=== PATIENT | male | born 2000 | race Caucasian/White ===

== ENCOUNTER 2022-06-04 12:57 | Inpatient (IN) ==
[2022-06-04 13:42] LABS: Basophils # (auto) 0.04 K/uL (0-0.2); Basophils % (auto) 0.6 %; Eosinophils % (auto) 1.5 %; Hematocrit (blood only) 45.1 % (42.0-52.0); Hemoglobin 15.9 g/dl (14.0-18.0); Immature Granulocytes # (auto) 0.02 K/uL (0.01-0.20); Immature Granulocytes % (auto) 0.3 %; Lymphocytes # (auto) 1.48 K/uL (1.2-3.4); Lymphocytes % (auto) 22.2 %; Mean Corpuscular Hemoglobin 30.9 pg (25.0-34.0); Mean Corpuscular Hgb Conc 35.3 g/dL (32.0-36.0); Mean Corpuscular Volume 87.7 fL (80.0-100.0); Mean Platelet Volume 10.3 fL (9.4-12.4); Monocytes # (auto) 0.48 K/uL (0.11-0.59); Monocytes % (auto) 7.2 %; Neutrophils # (auto) 4.55 K/uL (1.40-6.50); Neutrophils % (auto) 68.2 %; Platelet Count 270 K/uL (130-400); RDW Coefficient of Variation 11.8 % (11.5-14.5); RDW Standard Deviation 37.7 fL (36.4-46.3); Red Blood Count 5.14 M/uL (4.70-6.10); White Blood Count 6.67 K/ul (4.8-10.8)
[2022-06-04 13:55] LABS: Alanine Aminotransferase 11 U/L (7-52); Albumin Globulin Ratio 1.9 (0.9-2); Alkaline Phosphatase 56 U/L (34-104); Anion Gap 7 (3-11); Aspartate Aminotransferase 17 U/L (13-39); BUN Creatinine Ratio 15.3 (10-20); Bilirubin,Total 0.8 mg/dl (0.2-1.0); Blood Urea Nitrogen 15 mg/dl (6-23); Calcium 9.7 mg/dl (8.6-10.3); Carbon Dioxide 25 mmol/L (21-32); Chloride 107 mmol/L (98-107); Est GFR (African American) 125.4 ml/min; Est GFR (Non-African American) 108.2 ml/min; Globulin 2.7 gm/dl (2.5-4.0); Glucose 97 mg/dl (70-99(Fasting)); Potassium 4.1 mmol/L (3.5-5.1); Sodium 139 mmol/L (136-145); Total Protein 7.7 gm/dl (6.0-8.3)
[2022-06-04 14:00] LABS: Appearance Urine Clear (Clear); Bacteria Urine Automated Negative (Negative); Bilirubin Urine Negative (Negative); Blood Urine Trace (Negative); Color Urine Yellow; Glucose Urine UA Negative (Negative); Ketones Urine Negative (Negative); Leukocyte Esterase Urine Negative (Negative); Nitrite Urine Negative (Negative); Protein Urine Negative (Negative); Specific Gravity Urine 1.011 (1.000-1.030); Urobilinogen Urine Negative (Negative); pH Urine 7.5 (4.5-7.5)
[2022-06-04 14:06] LABS: Acetaminophen < 3 ug/ml (10-30); Salicylate < 3.0 mg/dl (3.0-30)
[2022-06-04 14:15] LABS: Amphetamines+Metham, Urine Neg (Neg); Barbiturates, Urine Neg (Neg); Benzodiazepine, Urine Neg (Neg); Cocaine, Urine Neg (Neg); MDMA (Ecstacy), Urine Neg (Neg); Methadone, Urine Neg (Neg); Opiate, Urine Neg (Neg); Phencyclidine, Urine Neg (Neg)
--- NOTE | 2022-06-04 14:15 | Emergency Department Note ---
Impression & Plan Depression, Intentional self-harm ED Provider Note Provider: Dameon Willard MD DATE OF SERVICE: 06/04/2022 CHIEF COMPLAINT: Mental health evaluation HISTORY OF PRESENT ILLNESS: Patient is a 21-year-old gentleman without known psychiatric history presenting here by the [place] police. Patient evidently slipped and got into an argument with his girlfriend returned home. Verbal argument. She is evidently angry for him to sleep again. He reports that she has recently had some medication changes and things have been a little during the argument he states he did not want to be here and took a knife and put some thin mcgarry on his neck. He tells me that he did this not an attempt to kill himself. Some small scrapes elsewise on his knuckles. Denies other injury or significant pain. States he is unsure when his last tetanus was but does not want an update. Patient states he has met with some point outpatient for intake session but is not sure when his upcoming therapy sessions are. Has a history of 2 prior inpatient stays previously. Denies wanting to harm anybody else cu rrently. No hallucinations reported. Denies taking any medications PAST MEDICAL HISTORY: As noted above MEDICATIONS: None reported SOCIAL HISTORY: Smoker PHYSICAL EXAM: GENERAL: alert and oriented in no acute distress on stretcher Head: normocephalic and atraumatic EYES: No injection, discharge or icterus. PERRL, EOMI. NECK: Trachea midline. There are approximately three 3 cm very superficial linear lacerations to the right lateral neck just above the collarbone. No active bleeding or significant depth. No foreign body. ENT: Mucous membranes pink and moist. LUNGS: Airway patent. No retractions or tachypnea HEART: Regular rate and rhythm. SKIN: Acyanotic, warm, dry EXTREMITIES: Without swelling, tenderness or deformity with some scattered abrasions on the knuckles bilaterally. NEUROLOGICAL: No focal deficits. No aphasia. No facial droop or slurred speech. Ambulatory. Psych: Flattened affect. Poor eye contact. Denies SI but states he wants to start a new life again on "another planet or in another country". Seems quite hopeless. No HI reported. Patient's laboratory studies reviewed. Differential includes Mood disorder, infection, hypoglycemia, electrolyte abno rmalities, cardiac sources, intracerebral event, toxicologic, trauma, neurologic, as well as other pathologies. IMPRESSION/MEDICAL DECISION MAKING: Seen with cyanide case hardener for mental health assessment. Patient with some very superficial cuts to the right lateral neck. Not near any major structures. No significant depth. Not require closure. Offered tetanus shot with the patient declines on discussion. He has some outpatient counseling but no current medications. No true HI noted. Denies wanting to kill himself but states he was been out of the planet or another country and seems to indicate significant hopelessness. Prior history of 2 mental health hospitalizations previously. [facility] blood work sent. No severe abnormalities noted. Excepted by 3 S. for further inpatient treatment on a voluntary status but strongly recommended given the severity of the actions today. DIAGNOSIS: Depression, self-harm DISPOSITION: 3 S. for further inpatient psychiatric care Past Med/Surg History Medical History No pertinent past medical history Surgical History No pertinent past surgical history Social History Smoking Status: Current every day smoker Preferred Language: Moldovan Communication Ability: Effective Energy Director Required: No Beliefs That Will Affect Care: None Feels Safe at Home: Yes Gender Identity: Male Assistive Devices: None Allergies Allergies Allergy/AdvReac Type Severity Reaction Status Date / Time azithromycin [From Zithromax] Allergy Verified 02/08/22 15:16 Home Meds Home Medications Medication Instructions Recorded Confirmed No Known Home Medications 06/04/22 06/04/22 Results & Data (ED) Vital Signs Vital Signs - 24 hr 06/04/22 13:27 06/04/22 13:31 06/04/22 16:00 Temperature 37.1 C Temperature Source Oral Oral Pulse Rate 91 H Pulse Rate [Radial] 70 Pulse Rhythm [Radial] Regular Respiratory Rate 16 18 Respiratory Effort / Characteristics Non-Labored Non-Labored Respiratory Depth Normal Normal Respiratory Pattern Regular Blood Pressure 127/101 H Blood Pressure [Right Arm] 138/79 Blood Pressure Mean 109 Blood Pressure Mean [Right Arm] 98 Blood Pressure Position Sitting Pulse Oximetry 100 97 Oxygen Delivery Method Room Air Room Air Sepsis Recent Fever Within 48 Hours No Sepsis New/Unexplained Change in Mental Status No Sepsis Action Taken by Nursing No Action Required Laboratory Data 06/04/22 13:15 06/04/22 13:15 Lab Results 06/04/22 06/04/22 06/04/22 Range/Units 13:10 13:10 13:15 WBC 6.67 (4.8-10.8) K/ul RBC 5.14 (4.70-6.10) M/uL Hgb 15.9 (14.0-18.0) g/dl Hct 45.1 (42.0-52.0) % MCV 87.7 (80.0-100.0) fL MCH 30.9 (25.0-34.0) pg MCHC 35.3 (32.0-36.0) g/dL RDW Std Deviation 37.7 (36.4-46.3) fL RDW Coeff of Monica 11.8 (11.5-14.5) % Plt Count 270 (130-400) K/uL MPV 10.3 (9.4-12.4) fL Immature Gran % (Auto) 0.3 % Neut % (Auto) 68.2 % Lymph % (Auto) 22.2 % Mills % (Auto) 7.2 % Eos % (Auto) 1.5 % Baso % (Auto) 0.6 % Neut # (Auto) 4.55 (1.40-6.50) K/uL Lymph # (Auto) 1.48 (1.2-3.4) K/uL Mills # (Auto) 0.48 (0.11-0.59) K/uL Eos # (Auto) 0.10 (0-0.50) K/uL Baso # (Auto) 0.04 (0-0.2) K/uL Immature Gran # (Auto) 0.02 (0.01-0.20) K/uL Sodium (136-145) mmol/L Potassium (3.5-5.1) mmol/L Chloride (98-107) mmol/L Carbon Dioxide (21-32) mmol/L Anion Gap (3-11) BUN (6-23) mg/dl Creatinine (0.6-1.4) mg/dl Est Cr Clr Drug Dosing Est GFR ( Amer) ml/min Est GFR (Non-Af Amer) ml/min BUN/Creatinine Ratio (10-20) Glucose (70-99(Fasting)) mg/dl Calcium (8.6-10.3) mg/dl Total Bilirubin (0.2-1.0) mg/dl AST (13-39) U/L ALT (7-52) U/L Alkaline Phosphatase (34-104) U/L Total Protein (6.0-8.3) gm/dl Albumin (3.4-5.0) gm/dl Globulin (2.5-4.0) gm/dl Albumin/Globulin Ratio (0.9-2) TSH (0.300-4.500) uIu/ml Urine Color Yellow Urine Appearance Clear (Clear) Urine pH 7.5 (4.5-7.5) Ur Specific [place] 1.011 (1.000-1.030) Urine Protein Negative (Negative) Urine Glucose (UA) Negative (Negative) Urine Ketones Negative (Negative) Urine Blood Trace H (Negative) Urine Nitrite Negative (Negative) Urine Bilirubin Negative (Negative) Urine Urobilinogen Negative (Negative) Ur Leukocyte Esterase Negative (Negative) Urine WBC (Auto) 1-5 (0-5) /hpf Urine RBC (Auto) 5-10 H (0-4) /hpf U Hyaline Cast (Auto) 5-10 H (0-5) /lpf U Epithel Cells (Auto) 5-10 H (0-5) /lpf Urine Bacteria (Auto) Negative (Negative) Salicylates (3.0-30) mg/dl Urine Opiates Screen Neg (Neg) Ur Methadone, Qual Neg (Neg) Acetaminophen (10-30) ug/ml Urine Barbiturates Neg (Neg) Ur Phencyclidine (PCP) Neg (Neg) U Amphetamin/Meth Scrn Neg (Neg) MDMA (Ecstasy) Screen Neg (Neg) U Benzodiazepines Scrn Neg (Neg) Ur Cocaine Metabolite Neg (Neg) U Marijuana (THC) Screen Pos H (Neg) Ethyl Alcohol mg/dL (<10.0) mg/dl SARS-CoV-2, RNA, NAAT (NEGATIVE) 06/04/22 06/04/22 06/04/22 Range/Units 13:15 13:15 13:15 WBC (4.8-10.8) K/ul RBC (4.70-6.10) M/uL Hgb (14.0-18.0) g/dl Hct (42.0-52.0) % MCV (80.0-100.0) fL MCH (25.0-34.0) pg MCHC (32.0-36.0) g/dL RDW Std Deviation (36.4-46.3) fL RDW Coeff of Monica (11.5-14.5) % Plt Count (130-400) K/uL MPV (9.4-12.4) fL Immature Gran % (Auto) % Neut % (Auto) % Lymph % (Auto) % Mills % (Auto) % Eos % (Auto) % Baso % (Auto) % Neut # (Auto) (1.40-6.50) K/uL Lymph # (Auto) (1.2-3.4) K/uL Mills # (Auto) (0.11-0.59) K/uL Eos # (Auto) (0-0.50) K/uL Baso # (Auto) (0-0.2) K/uL Immature Gran # (Auto) (0.01-0.20) K/uL Sodium 139 (136-145) mmol/L Potassium 4.1 (3.5-5.1) mmol/L Chloride 107 (98-107) mmol/L Carbon Dioxide 25 (21-32) mmol/L Anion Gap 7 (3-11) BUN 15 (6-23) mg/dl Creatinine 0.98 (0.6-1.4) mg/dl Est Cr Clr Drug Dosing Not Reportable Est GFR ( Amer) 125.4 ml/min Est GFR (Non-Af Amer) 108.2 ml/min BUN/Creatinine Ratio 15.3 (10-20) Glucose 97 (70-99(Fasting)) mg/dl Calcium 9.7 (8.6-10.3) mg/dl Total Bilirubin 0.8 (0.2-1.0) mg/dl AST 17 (13-39) U/L ALT 11 (7-52) U/L Alkaline Phosphatase 56 (34-104) U/L Total Protein 7.7 (6.0-8.3) gm/dl Albumin 5.0 (3.4-5.0) gm/dl Globulin 2.7 (2.5-4.0) gm/dl Albumin/Globulin Ratio 1.9 (0.9-2) TSH 2.853 (0.300-4.500) uIu/ml Urine Color Urine Appearance (Clear) Urine pH (4.5-7.5) Ur Specific [place] (1.000-1.030) Urine Protein (Negative) Urine Glucose (UA) (Negative) Urine Ketones (Negative) Urine Blood (Negative) Urine Nitrite (Negative) Urine Bilirubin (Negative) Urine Urobilinogen (Negative) Ur Leukocyte Esterase (Negative) Urine WBC (Auto) (0-5) /hpf Urine RBC (Auto) (0-4) /hpf U Hyaline Cast (Auto) (0-5) /lpf U Epithel Cells (Auto) (0-5) /lpf Urine Bacteria (Auto) (Negative) Salicylates < 3.0 L (3.0-30) mg/dl Urine Opiates Screen (Neg) Ur Methadone, Qual (Neg) Acetaminophen < 3 L (10-30) ug/ml Urine Barbiturates (Neg) Ur Phencyclidine (PCP) (Neg) U Amphetamin/Meth Scrn (Neg) MDMA (Ecstasy) Screen (Neg) U Benzodiazepines Scrn (Neg) Ur Cocaine Metabolite (Neg) U Marijuana (THC) Screen (Neg) Ethyl Alcohol mg/dL (<10.0) mg/dl SARS-CoV-2, RNA, NAAT (NEGATIVE) 06/04/22 06/04/22 Range/Units 13:15 13:20 WBC (4.8-10.8) K/ul RBC (4.70-6.10) M/uL Hgb (14.0-18.0) g/dl Hct (42.0-52.0) % MCV (80.0-100.0) fL MCH (25.0-34.0) pg MCHC (32.0-36.0) g/dL RDW Std Deviation (36.4-46.3) fL RDW Coeff of Monica (11.5-14.5) % Plt Count (130-400) K/uL MPV (9.4-12.4) fL Immature Gran % (Auto) % Neut % (Auto) % Lymph % (Auto) % Mills % (Auto) % Eos % (Auto) % Baso % (Auto) % Neut # (Auto) (1.40-6.50) K/uL Lymph # (Auto) (1.2-3.4) K/uL Mills # (Auto) (0.11-0.59) K/uL Eos # (Auto) (0-0.50) K/uL Baso # (Auto) (0-0.2) K/uL Immature Gran # (Auto) (0.01-0.20) K/uL Sodium (136-145) mmol/L Potassium (3.5-5.1) mmol/L Chloride (98-107) mmol/L Carbon Dioxide (21-32) mmol/L Anion Gap (3-11) BUN (6-23) mg/dl Creatinine (0.6-1.4) mg/dl Est Cr Clr Drug Dosing Est GFR ( Amer) ml/min Est GFR (Non-Af Amer) ml/min BUN/Creatinine Ratio (10-20) Glucose (70-99(Fasting)) mg/dl Calcium (8.6-10.3) mg/dl Total Bilirubin (0.2-1.0) mg/dl AST (13-39) U/L ALT (7-52) U/L Alkaline Phosphatase (34-104) U/L Total Protein (6.0-8.3) gm/dl Albumin (3.4-5.0) gm/dl Globulin (2.5-4.0) gm/dl Albumin/Globulin Ratio (0.9-2) TSH (0.300-4.500) uIu/ml Urine Color Urine Appearance (Clear) Urine pH (4.5-7.5) Ur Specific [place] (1.000-1.030) Urine Protein (Negative) Urine Glucose (UA) (Negative) Urine Ketones (Negative) Urine Blood (Negative) Urine Nitrite (Negative) Urine Bilirubin (Negative) Urine Urobilinogen (Negative) Ur Leukocyte Esterase (Negative) Urine WBC (Auto) (0-5) /hpf Urine RBC (Auto) (0-4) /hpf U Hyaline Cast (Auto) (0-5) /lpf U Epithel Cells (Auto) (0-5) /lpf Urine Bacteria (Auto) (Negative) Salicylates (3.0-30) mg/dl Urine Opiates Screen (Neg) Ur Methadone, Qual (Neg) Acetaminophen (10-30) ug/ml Urine Barbiturates (Neg) Ur Phencyclidine (PCP) (Neg) U Amphetamin/Meth Scrn (Neg) MDMA (Ecstasy) Screen (Neg) U Benzodiazepines Scrn (Neg) Ur Cocaine Metabolite (Neg) U Marijuana (THC) Screen (Neg) Ethyl Alcohol mg/dL < 10.0 (<10.0) mg/dl SARS-CoV-2, RNA, NAAT NEGATIVE (NEGATIVE) Administered Medications Discontinued Medications Nicotine Polacrilex (Nicotine Polacrilex 2 Mg Gum) 1 piece MT PRN PRN PRN Reason: smoking Stop: 07/04/22 14:12 Last Admin: 06/04/22 16:15 Dose: 1 piece Documented By: Admin: 06/04/22 14:23 Dose: 1 piece Documented By: KACIE Discharge Plan Visit Data Chief Complaint: Mental Health Evaluation Stated Complaint: [facility] ED Provider: Dameon Willard Discharge Problem: Depression, Intentional self-harm Patient Disposition: Admitted As Inpatient Discharge Instructions Interventions: ED Discharge Assessment Last Done: 06/04/22 17:03
[2022-06-04] MEDS: NICOTINE POLACRILEX 2 MG GUM MT PRN ×4 (14:23→19:54)
[2022-06-04] MEDS ORDERED: NICOTINE POLACRILEX 2 MG GUM MT PRN (14:25)
[2022-06-04] MEDS ORDERED: hydrOXYzine HCl 25 MG TAB PO PRN ×2 (17:26)
[2022-06-04] MEDS ORDERED: ALUMINUM/MAGNESIUM SUSP 30 ML UDC PO PRN (17:26)
[2022-06-04] MEDS ORDERED: ACETAMINOPHEN 325 MG TAB PO PRN (17:26)
[2022-06-04] MEDS ORDERED: MAGNESIUM HYDROXIDE SUSP 30 ML UDC PO PRN (17:26)
[2022-06-04] MEDS ORDERED: BISMUTH SUBSALICYLATE LIQD 236 ML PO PRN (17:26)
[2022-06-04] MEDS ORDERED: SODIUM CHLORIDE 0.65% NA SOLN 45 ML (OCEAN) PRN (17:26)
[2022-06-05] MEDS: NICOTINE POLACRILEX 2 MG GUM MT PRN ×5 (06:59→20:22)
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
[2022-06-05] MEDS: NICOTINE 14 MG/24 HR PATCH TD SCH (11:35)
[2022-06-05] MEDS: FLUoxetine HCL 20 MG CAP PO SCH (12:24)
[2022-06-06] MEDS: NICOTINE POLACRILEX 2 MG GUM MT PRN ×4 (07:29→21:03)
[2022-06-06] MEDS: FLUoxetine HCL 20 MG CAP PO SCH (08:17)
[2022-06-06] MEDS: NICOTINE 14 MG/24 HR PATCH TD SCH (08:18)
--- NOTE | 2022-06-06 14:28 | Psychiatric Progress Note ---
Date of Service June 06, 2022 Impression / Recommendations Mike Augustin is a 21 year old man with a history of depression, anxiety, PTSD, ADHD and self-harm who was admitted for suicide rehearsal behavior/interrupted attempt of cutting his neck with a knife. Diagnostically consistent with Major Depressive Disorder with anxious distress versus PTSD, also with SABRINA and ADHD per history (sounds like combined type given periods of prominent hyperactivity). The patient is deemed unstable and requires psychiatric hospitalization for diagnostic clarification, safety and stabilization, medication management and development of further coping skills. 06/06/2022: Ongoing depression but tolerating initiation of fluoxetine. Will monitor vision change to ensure this doesn't worsen, discussed option to move fluoxetine to HS if he feels it is causing fatigue but for now he prefers to ta ke this in the morning. (1) Recurrent severe major depressive disorder with anxiety: (2) SABRINA (generalized anxiety disorder): (3) Post traumatic stress disorder (PTSD): (4) ADHD (attention deficit hyperactivity disorder): Plan 06/06/2022: Continue current medications and tx plan. 06/05/2022: The patient was admitted to the [facility] ([facility] mental health unit) on q15 min checks (behavioral with suicide precautions) for safety. The patient will participate in group, recreational, and milieu therapies and will be offered additional individual and family sessions as clinically appropriate. -start fluoxetine 20mg qd Inventory Assets Strengths: supportive relationships, willing to get treatment Needs: safety and stabilization, medication adjustment, additional coping skills, increased outpatient services Suicide Risk Level Suicide Risk Level: High-Moderate (q15 min suicide checks) (depression with suicide rehearsal behavior prior to admission but now feels safe in the hospital, able to safety contract and agrees to let nursing/staff know should they develop plan, intent or feel unable to remain safe. ) Risk Factors Assessment Male: Yes : Yes Do You Have Access To A Gun?: No (no guns at his apartment but has friends with guns that he will aaron with) Health Problems: No Mental Health Diagnoses: Yes Previous Attempt: No Family History of Suicide: Yes Previous Psychiatric Hospitalization: Yes Protective Factors Assessment [employer] Beliefs: Yes Employed: Yes Stable Relationships: Yes Supportive Family: Yes Interval History Identifying Information DION ROGERS is a 21-year-old M who currently lives in [place] with his girlfriend, has a history of depression, anxiety, PTSD and ADHD and was admitted on 06/04/22 16:41 on a 201 voluntary commitment for suicide rehearsal behavior of cutting his neck with a knife. Chief Complaint "I had a really conversation with the counselor, I'm proud of myself for working on things this time and not just trying to get out here". Review of Systems Sleep Information Total Hours of Sleep: 5 Meal Information Percent Meal Consumed - Breakfast: 90 Percent Meal Consumed - Lunch: 100 Percent Meal Consumed - Dinner: 80 Subjective Subjective Patient was seen & assessed and interval progress reviewed with treatment team nursing and social work. Attending groups. Finding inpatient environment very therapeutic. Feels he's reflecting on his anger and negative reactions that occur when he feels "not in control". No side effects from the fluoxetine so far except brief sense of vision change for a second before he fully wakes up but no vision changes during the day while awake. Physical Exam Psychiatric Orientation: alert and oriented x 3 Apperance: appropriately dressed and appropriately groomed Eye Contact: good eye contact Motor Behavior: no abnormal motor movements Speech: normal rate/rhythm/volume of speech Affect: + depressed affect and + anxious affect Mood: + depressed mood and + anxious mood Thought Process: goal directed thought process Thought Content: reality based without delusions, + guilt and + self deprecation Suicidal Thoughts: denies suicidal thoughts (intermittent), denies suicidal plan and denies suicidal intent Homicidal Thoughts: denies homicidal thoughts Hallucinations: no auditory hallucinations and no visual hallucinations Cognition: recent memory grossly intact, remote memory grossly intact, attention grossly intact and language grossly intact Estimated Intelligence: consistent with education level Insight: + fair insight Judgment: + fair judgement Vital Signs (Past 24 Hours) Last Vital Signs Temp 36.6 C 06/06/22 06:28 Pulse 81 06/06/22 06:28 Resp 16 06/06/22 06:28 BP 128/87 06/06/22 06:28 Pulse Ox 97 06/05/22 06:00 O2 Del Method Room Air 06/05/22 06:00 Results & Data ([facility] [place]) Current Inpatient Medications Current Inpatient Medications: Current Inpatient Medications Acetaminophen (Acetaminophen 325 Mg Tab) 650 mg PO Q4H PRN PRN Reason: Headache or Minor Fever Stop: 07/04/22 17:25 Al Hydrox/Mg Hydrox/Simethicone (Aluminum/Magnesium Susp 30 Ml Udc) 30 ml PO Q4H PRN PRN Reason: GI Upset Stop: 07/04/22 17:25 Bismuth Subsalicylate (Bismuth Subsalicylate Liqd 236 Ml) 15 ml PO PRN PRN PRN Reason: Loose Stool Stop: 07/04/22 17:25 Fluoxetine HCl (Fluoxetine Hcl 20 Mg Cap) 20 mg PO QAM [facility] Stop: 07/05/22 11:29 Last Admin: 06/06/22 08:17 Dose: 20 mg Hydroxyzine HCl (Hydroxyzine Hcl 25 Mg Tab) 50 mg PO HSZ PRN PRN Reason: Insomnia Stop: 07/04/22 17:25 Hydroxyzine HCl (Hydroxyzine Hcl 25 Mg Tab) 25 mg PO Q4H PRN PRN Reason: Anxiety Stop: 07/04/22 17:25 Last Admin: 06/04/22 19:54 Dose: 25 mg Magnesium Hydroxide (Magnesium Hydroxide Susp 30 Ml Udc) 30 ml PO DAILY PRN PRN Reason: Constipation Stop: 07/04/22 17:25 Miscellaneous (Remove Nicoderm Patch) 1 each N/A DAILY@[id number] [facility] Stop: 07/06/22 08:58 Last Admin: 06/06/22 08:18 Dose: Not Given Nicotine (Nicotine 14 Mg/24 Hr Patch) 14 mg TD QAM [facility] Stop: 07/05/22 10:14 Last Admin: 06/06/22 08:18 Dose: 14 mg Nicotine Polacrilex (Nicotine Polacrilex 2 Mg Gum) 1 piece MT PRN PRN PRN Reason: smoking cessation Stop: 07/04/22 17:26 Last Admin: 06/06/22 12:07 Dose: 1 piece Sodium Chloride (Sodium Chloride 0.65% Na Soln 45 Ml ([place])) 1 - 2 sprays NA PRN PRN PRN Reason: Nasal Dryness/Congestion Stop: 07/04/22 17:25 Mental Health & Subst Abuse Tx Psychiatrist Name of Psychiatrist: Charu Streeter Psychiatrist's Date Of Appointment With Psychiatric Provider: 06/24/2022 Time of Appointment with Psychiatrist: 10am Psychiatric Appointment Comment: [address] [place], [place] Therapist Name of Therapist: [facility] Date of Therapist Appointment: 06/20/2022 Time of Therapist Appointment: 4PM Therapy Appointment Comment: continue zoom protocol Post Discharge Appointments Primary Care Physician Name Of Family Doctor/PCP: [facility] Time of Appointment with PCP: follow up as needed Provider Appointment Comment: [address] [place] [id number]
[2022-06-07] MEDS: NICOTINE POLACRILEX 2 MG GUM MT PRN ×5 (08:11→20:05)
[2022-06-07] MEDS: FLUoxetine HCL 20 MG CAP PO SCH (08:25)
[2022-06-07] MEDS: NICOTINE 14 MG/24 HR PATCH TD SCH (08:30)
--- NOTE | 2022-06-07 16:37 | Psychiatric Progress Note ---
Date of Service June 07, 2022 Impression / Recommendations Mkie Augustin is a 21 year old man with a history of depression, anxiety, PTSD, ADHD and self-harm who was admitted for suicide rehearsal behavior/interrupted attempt of cutting his neck with a knife. Diagnostically consistent with Major Depressive Disorder with anxious distress versus PTSD, also with SABRINA and ADHD per history (sounds like combined type given periods of prominent hyperactivity). The patient is deemed unstable and requires psychiatric hospitalization for diagnostic clarification, safety and stabilization, medication management and development of further coping skills. 06/07/2022: Ongoing depression but increasing insight and working on processing how past trauma and anger has impacted how he processes and reacts to emotions. Seems vision changes may be due to nicotine patch, will continue to monitor. Otherwise tolerating fluoxetine well. (1) Recurrent severe major depressive disorder with anxiety: (2) SABRINA (generalized anxiety disorder): (3) Post traumatic stress disorder (PTSD): (4) ADHD (attention deficit hyperactivity disorder): Plan 06/07/2022: Continue current medications and tx plan. 06/06/2022: Continue current medications and tx plan. 06/05/2022: The patient was admitted to the [facility] ([facility] mental health unit) on q15 min checks (behavioral with suicide precautions) for safety. The patient will participate in group, recreational, and milieu therapies and will be offered additional individual and family sessions as clinically appropriate. -start fluoxetine 20mg qd Inventory Assets Strengths: supportive relationships, willing to get treatment Needs: safety and stabilization, medication adjustment, additional coping skills, increased outpatient services Suicide Risk Level Suicide Risk Level: High-Moderate (q15 min suicide checks) (depression with suicide rehearsal behavior prior to admission but now feels safe in the hospital, able to safety contract and agrees to let nursing/staff know should they develop plan, intent or feel unable to remain safe. ) Risk Factors Assessment Male: Yes : Yes Do You Have Access To A Gun?: No (no guns at his apartment but has friends with guns that he will aaron with) Health Problems: No Mental Health Diagnoses: Yes Previous Attempt: No Family History of Suicide: Yes Previous Psychiatric Hospitalization: Yes Protective Factors Assessment Mu-Ism Beliefs: Yes Employed: Yes Stable Relationships: Yes Supportive Family: Yes Interval History Identifying Information DION ROGERS is a 21-year-old M who currently lives in [place] with his girlfriend, has a history of depression, anxiety, PTSD and ADHD and was admitted on 06/04/22 16:41 on a 201 voluntary commitment for suicide rehearsal behavior of cutting his neck with a knife. Chief Complaint "I'm good". Review of Systems Sleep Information Total Hours of Sleep: 6 Meal Information Percent Meal Consumed - Breakfast: 100 Percent Meal Consumed - Lunch: 100 Percent Meal Consumed - Dinner: 65 Subjective Subjective Patient was seen & assessed and interval progress reviewed with treatment team nursing and social work. Had support meeting with his girlfriend and was pleased with how much he was able to reflect and share with her. Remains appreciative for inpatient treatment, feels he is working on a lot of issues "that I've never addressed before and needed to". Had some blurry vision this morning that lasted about 15 minutes but has since resolved and some weird dreams last night but forgot to remove nicotine patch last night. No new side effects from fluoxetine, he feels it might be starting to work. Physical Exam Psychiatric Orientation: alert and oriented x 3 Apperance: appropriately dressed and appropriately groomed Eye Contact: good eye contact Motor Behavior: no abnormal motor movements Speech: normal rate/rhythm/volume of speech Affect: + depressed affect and + anxious affect Mood: + depressed mood and + anxious mood Thought Process: goal directed thought process Thought Content: reality based without delusions, + guilt and + self deprecation Suicidal Thoughts: denies suicidal thoughts, denies suicidal plan and denies suicidal intent Homicidal Thoughts: denies homicidal thoughts Hallucinations: no auditory hallucinations and no visual hallucinations Cognition: recent memory grossly intact, remote memory grossly intact, attention grossly intact and language grossly intact Estimated Intelligence: consistent with education level Insight: + fair insight Judgment: + fair judgement Vital Signs (Past 24 Hours) Last Vital Signs Temp 36.6 C 06/07/22 06:33 Pulse 68 06/07/22 06:34 Resp 16 06/07/22 06:33 BP 117/81 06/07/22 06:34 Pulse Ox 97 06/05/22 06:00 O2 Del Method Room Air 06/05/22 06:00 Results & Data ([facility]) Current Inpatient Medications Current Inpatient Medications: Current Inpatient Medications Acetaminophen (Acetaminophen 325 Mg Tab) 650 mg PO Q4H PRN PRN Reason: Headache or Minor Fever Stop: 07/04/22 17:25 Al Hydrox/Mg Hydrox/Simethicone (Aluminum/Magnesium Susp 30 Ml Udc) 30 ml PO Q4H PRN PRN Reason: GI Upset Stop: 07/04/22 17:25 Bismuth Subsalicylate (Bismuth Subsalicylate Liqd 236 Ml) 15 ml PO PRN PRN PRN Reason: Loose Stool Stop: 07/04/22 17:25 Fluoxetine HCl (Fluoxetine Hcl 20 Mg Cap) 20 mg PO QAM [facility] Stop: 07/05/22 11:29 Last Admin: 06/07/22 08:25 Dose: 20 mg Hydroxyzine HCl (Hydroxyzine Hcl 25 Mg Tab) 50 mg PO HSZ PRN PRN Reason: Insomnia Stop: 07/04/22 17:25 Hydroxyzine HCl (Hydroxyzine Hcl 25 Mg Tab) 25 mg PO Q4H PRN PRN Reason: Anxiety Stop: 07/04/22 17:25 Last Admin: 06/04/22 19:54 Dose: 25 mg Magnesium Hydroxide (Magnesium Hydroxide Susp 30 Ml Udc) 30 ml PO DAILY PRN PRN Reason: Constipation Stop: 07/04/22 17:25 Miscellaneous (Remove Nicoderm Patch) 1 each N/A DAILY@0859 [facility] Stop: 07/06/22 08:58 Last Admin: 06/07/22 08:28 Dose: Not Given Nicotine (Nicotine 14 Mg/24 Hr Patch) [facility]: 07/05/22 10:14 Last Admin: 06/07/22 08:30 Dose: 14 mg Nicotine Polacrilex (Nicotine Polacrilex 2 Mg Gum) 1 piece MT PRN PRN PRN Reason: smoking cessation Stop: 07/04/22 17:26 Last Admin: 06/07/22 13:05 Dose: 1 piece Sodium Chloride (Sodium Chloride 0.65% Na Soln 45 Ml ([place])) 1 - 2 sprays NA PRN PRN PRN Reason: Nasal Dryness/Congestion Stop: 07/04/22 17:25 Mental Health & Subst Abuse Tx Psychiatrist Name of Psychiatrist: Charu Streeter Psychiatrist's Date Of Appointment With Psychiatric Provider: 06/24/2022 Time of Appointment with Psychiatrist: 10am Psychiatric Appointment Comment: [address] [place], [place] Therapist Name of Therapist: [facility] Therapist's Date of Therapist Appointment: 06/20/2022 Time of Therapist Appointment: 4PM Therapy Appointment Comment: continue zoom protocol Post Discharge Appointments Primary Care Physician Name Of Family Doctor/PCP: [facility] Time of Appointment with PCP: follow up as needed Provider Appointment Comment: [address] [place] [address]
[2022-06-08] MEDS: NICOTINE POLACRILEX 2 MG GUM MT PRN ×4 (07:38→21:16)
[2022-06-08] MEDS: NICOTINE 14 MG/24 HR PATCH TD SCH (08:51)
[2022-06-08] MEDS: FLUoxetine HCL 20 MG CAP PO SCH (08:51)
[2022-06-08 09:57] LABS: Marijuana Quant, GCMS Urine 656 ng/mL (<5)
--- NOTE | 2022-06-08 20:57 | Psychiatric Progress Note ---
Date of Service June 08, 2022 Impression / Recommendations Mike Augustin is a 21 year old man with a history of depression, anxiety, PTSD, ADHD and self-harm who was admitted for suicide rehearsal behavior/interrupted attempt of cutting his neck with a knife. Diagnostically consistent with Major Depressive Disorder with anxious distress versus PTSD, also with SABRINA and ADHD per history (sounds like combined type given periods of prominent hyperactivity). The patient is deemed unstable and requires psychiatric hospitalization for diagnostic clarification, safety and stabilization, medication management and development of further coping skills. 06/08/2022: Ongoing depression but increased hopefulness today, still with some anxiety and PTSD symptoms. Discussed option to try Vistaril at HS to help with sleep if he experiences increased anxiety tonight. (1) Recurrent severe major depressive disorder with anxiety: (2) SABRINA (generalized anxiety disorder): (3) Post traumatic stress disorder (PTSD): (4) ADHD (attention deficit hyperactivity disorder): Plan 06/08/2022: Continue current medications and tx plan. 06/07/2022: Continue current medications and tx plan. 06/06/2022: Continue current medications and tx plan. 06/05/2022: The patient was admitted to the [facility] ([facility]) on q15 min checks (behavioral with suicide precautions) for safety. The patient will participate in group, recreational, and milieu therapies and will be offered additional individual and family sessions as clinically appropriate. -start fluoxetine 20mg qd Inventory Assets Strengths: supportive relationships, willing to get treatment Needs: safety and stabilization, medication adjustment, additional coping skills, increased outpatient services Suicide Risk Level Suicide Risk Level: Moderate (q15 min suicide checks) (depression with suicide rehearsal behavior prior to admission but now denies SI, mood improving, hopefulness and feels safe in the hospital, able to safety contract and agrees to let nursing/staff know should they develop plan, intent or feel unable to remain safe. ) Risk Factors Assessment Male: Yes : Yes Do You Have Access To A Gun?: No (no guns at his apartment but has friends with guns that he will aaron with) Health Problems: No Mental Health Diagnoses: Yes Previous Attempt: No Family History of Suicide: Yes Previous Psychiatric Hospitalization: Yes Protective Factors Assessment Scientology Beliefs: Yes Employed: Yes Stable Relationships: Yes Supportive Family: Yes Interval History Identifying Information DION ROGERS is a 21-year-old M who currently lives in [place] with his girlfriend, has a history of depression, anxiety, PTSD and ADHD and was admitted on 06/04/22 16:41 on a 201 voluntary commitment for suicide rehearsal behavior of cutting his neck with a knife. Chief Complaint "I'm feeling pretty hopeful". Review of Systems Sleep Information Total Hours of Sleep: 6 Meal Information Percent Meal Consumed - Breakfast: 100 Percent Meal Consumed - Lunch: 100 Percent Meal Consumed - Dinner: 50 Subjective Subjective Patient was seen & assessed and interval progress reviewed with treatment team nursing and social work. Enjoyed visiting hours with his girlfriend last night. Increased anxiety last night and some today due to processing past trauma and "finally thinking about a lot of stuff". Also some anxiety about multiple stressors once he leaves the hospital. But overall feels his depression is "dfefinitely getting a lot better", denies SI and is finding fluoxetine "really helpful". Physical Exam Psychiatric Orientation: alert and oriented x 3 Apperance: appropriately dressed and appropriately groomed Eye Contact: good eye contact Motor Behavior: no abnormal motor movements Speech: normal rate/rhythm/volume of speech Affect: + anxious affect Mood: + depressed mood and + anxious mood Thought Process: goal directed thought process Thought Content: reality based without delusions Suicidal Thoughts: denies suicidal thoughts, denies suicidal plan and denies suicidal intent Homicidal Thoughts: denies homicidal thoughts Hallucinations: no auditory hallucinations and no visual hallucinations Cognition: recent memory grossly intact, remote memory grossly intact, attention grossly intact and language grossly intact Estimated Intelligence: consistent with education level Insight: + fair insight Judgment: + fair judgement Vital Signs (Past 24 Hours) Last Vital Signs Temp 36.4 C L 06/08/22 06:37 Pulse 66 06/08/22 06:38 Resp 16 06/08/22 06:37 BP 117/76 06/08/22 06:38 Pulse Ox 97 06/05/22 06:00 O2 Del Method Room Air 06/05/22 06:00 Results & Data ([facility]) Laboratory Results Laboratory Results - last 24 hr 06/04/22 13:10 U Marijuana THC Carboxy 656 H Drug Screen Comment SEE NOTE Current Inpatient Medications Current Inpatient Medications: Current Inpatient Medications Acetaminophen (Acetaminophen 325 Mg Tab) 650 mg PO Q4H PRN PRN Reason: Headache or Minor Fever Stop: 07/04/22 17:25 Al Hydrox/Mg Hydrox/Simethicone (Aluminum/Magnesium Susp 30 Ml Udc) 30 ml PO Q4H PRN PRN Reason: GI Upset Stop: 07/04/22 17:25 Bismuth Subsalicylate (Bismuth Subsalicylate Liqd 236 Ml) 15 ml PO PRN PRN PRN Reason: Loose Stool Stop: 07/04/22 17:25 Fluoxetine HCl (Fluoxetine Hcl 20 Mg Cap) 20 mg PO QAM [facility] Stop: 07/05/22 11:29 Last Admin: 06/08/22 08:51 Dose: 20 mg Hydroxyzine HCl (Hydroxyzine Hcl 25 Mg Tab) 50 mg PO HSZ PRN PRN Reason: Insomnia Stop: 07/04/22 17:25 Hydroxyzine HCl (Hydroxyzine Hcl 25 Mg Tab) 25 mg PO Q4H PRN PRN Reason: Anxiety Stop: 07/04/22 17:25 Last Admin: 06/04/22 19:54 Dose: 25 mg Magnesium Hydroxide (Magnesium Hydroxide Susp 30 Ml Udc) 30 ml PO DAILY PRN PRN Reason: Constipation Stop: 07/04/22 17:25 Miscellaneous (Remove Nicoderm Patch) 1 each N/A DAILY@0859 [facility] Stop: 07/06/22 08:58 Last Admin: 06/08/22 08:52 Dose: 1 each Nicotine (Nicotine 14 Mg/24 Hr Patch) 14 [facility] [place] Stop: 07/05/22 10:14 Last Admin: 06/08/22 08:51 Dose: 14 mg Nicotine Polacrilex (Nicotine Polacrilex 2 Mg Gum) 1 piece MT PRN PRN PRN Reason: smoking cessation Stop: 07/04/22 17:26 Last Admin: 06/08/22 15:31 Dose: 1 piece Sodium Chloride (Sodium Chloride 0.65% Na Soln 45 Ml ([place])) 1 - 2 sprays NA PRN PRN PRN Reason: Nasal Dryness/Congestion Stop: 07/04/22 17:25 Mental Health & Subst Abuse Tx Psychiatrist Name of Psychiatrist: Charu Streeter Psychiatrist's Date Of Appointment With Psychiatric Provider: 06/24/2022 Time of Appointment with Psychiatrist: 10am Psychiatric Appointment Comment: [address] [place], [place] Therapist Name of Therapist: [facility] Therapist's Date of Therapist Appointment: 06/20/2022 Time of Therapist Appointment: 4PM Therapy Appointment Comment: continue zoom protocol Post Discharge Appointments Primary Care Physician Name Of Family Doctor/PCP: [facility] Time of Appointment with PCP: follow up as needed Provider Appointment Comment: [address] [place] [address]
[2022-06-09] MEDS: FLUoxetine HCL 20 MG CAP PO SCH (08:03)
[2022-06-09] MEDS: NICOTINE 14 MG/24 HR PATCH TD SCH (08:04)
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
== END 2022-06-09 10:26 | disposition home or self-care (01) | DRG 885 ==
LOC: ED 12:57 → 3S 16:41